=== PATIENT | male | born 1970 | race Caucasian/White ===

== ENCOUNTER 2017-09-26 12:55 | Inpatient (IN) | payer BC ==
[~2017-09-26] VITALS: Ht 188 cm; Wt 108.9 kg
[2017-09-26] MEDS ORDERED: IV NORMAL SALINE 1000ML BAG 1,000 ML IV SCH (13:16)
[2017-09-26] MEDS ORDERED: 0.9 % SODIUM CHLORIDE 10 ML DISP.SYRIN. IV PRN (13:30)
[2017-09-26] MEDS: HYDROmorphone 2 MG/ML VIAL IV/SQ PRN (13:33)
[2017-09-26 13:50] LABS: BASO % 0 % (0-3); EOS % 1 % (0-3); HEMATOCRIT 47.7 % (39.0-53.0); HEMOGLOBIN 16.3 g/dL (13.0-17.5); LYMPH # 1.2 x10^3/uL (1.0-4.8); LYMPH % 8 % (24-48); MEAN CORPUSCULAR HEMOGLOBIN 29 pg (25-35); MEAN CORPUSCULAR HGB CONC 34 g/dL (31-37); MEAN CORPUSCULAR VOLUME 84 fL (79-100); MONO % 7 % (0-9); NEUT % 84 % (31-73); PLATELET COUNT 233 x10^3/uL (140-400); WHITE BLOOD COUNT 14.2 x10^3/uL (4.0-11.0)
[2017-09-26 14:01] LABS: CALCIUM 9.4 mg/dL (8.5-10.1); CREATININE 1.1 mg/dL (0.7-1.3); GFR 71.4; POTASSIUM 4.1 mmol/L (3.5-5.1)
[2017-09-26 14:06] LABS: ALBUMIN 4.2 g/dL (3.4-5.0); DIRECT BILIRUBIN 0.1 mg/dL (0.0-0.2); MAGNESIUM 1.8 mg/dL (1.8-2.4); TOTAL BILIRUBIN 0.6 mg/dL (0.2-1.0); TOTAL PROTEIN 8.1 g/dL (6.4-8.2)
--- NOTE | 2017-09-26 14:13 | RAD ---
PQRS Compliance Statement: One or more of the following individualized dose reduction techniques were utilized for this examination: 1. Automated exposure control 2. Adjustment of the mA and/or kV according to patient size 3. Use of iterative reconstruction technique CT HEAD WITHOUT CONTRAST History: paresthesias of the left upper and left lower limb . Comparison: None. Procedure: Axial images are obtained of the head from the skull base through the vertex without IV contrast. Findings: Richards-white matter differentiation is preserved. The ventricles and sulci are normal for the patient's age.. No mass-effect, midline shift, hemorrhage or obvious acute infarction is identified. Basilar cisterns are patent. Bone windows demonstrate no significant calvarial abnormality.The visualized paranasal sinuses appear clear. Mastoid air cells are well aerated. IMPRESSION: No acute intracranial abnormality.
[2017-09-26 14:15] LABS: CKMB MASS 0.9 ng/mL (0.0-3.6)
[2017-09-26] MEDS ORDERED: ONDANSETRON PF 4 MG/2 ML VIAL. IV ONE (14:15)
--- NOTE | 2017-09-26 14:17 | RAD ---
AP PORTABLE CHEST Clinical Indication: chest pain. Comparison: AP chest 04/10/2012. Findings: The cardiomediastinal silhouette is normal. Lungs are clear. There is no pneumothorax. No pleural effusion is appreciated. There is no acute bone abnormality. IMPRESSION: No acute cardiopulmonary process.
--- NOTE | 2017-09-26 14:23 | PHYS DOC ---
Past Medical History Past Medical History: GERD, Hypertension Past Surgical History: Other Additional Past Surgical Histo: cardiac cath no intervention Alcohol Use: None Drug Use: None Adult General Chief Complaint Chief Complaint: CHEST PAIN HPI HPI He is a pleasant 47-year-old male with a history of reflux who presents with chest pain that began about 3 3/2 hours prior to arrival. Patient says the pain has been episodic in the center of his chest with radiation to the left chest wall. So subsequently during this event he also had tingling and numbness to his left upper arm and left lower leg is been continuous as well. He denies any problems with vision, denies any problems with speech, denies weakness in the upper or lower extremity just tingling and numbness. Subsequently the chest pain started while he was walking in [employer] shopping, he admits that he said a similar episode like this about 4 years ago requiring direct intervention and a catheterization by her tank insulator rubber which found as he states "" no disease. He has a significant family history of a father had a heart attack at age of 50 and direct relatives with also the same problem. He does not describe any shortness of breath with exertion or change in size habits. He further denies any travel outside the country, recent swelling or pain in his lower legs or other PE risk factors. Patient denies any direct trauma, denies any shortness of breath at this time, denies any URI symptoms including cough, runny nose congestion. He further denies any night sweats, weight loss or history of tuberculosis.. Patient was picked up by EMS based on his complaint this is only provided him aspirin for baby aspirins 81 mg apiece for total 324 mg. He also gave him 2 sprays of some little nitroglycerin and fentanyl without much improvement of his discomfort. Differential diagnosis for chest pain: Pericarditis, myocarditis, endocarditis, pneumothorax, pneumonia, aortic dissection, esophageal spasm, esophagitis, peptic ulcer disease, acute coronary syndrome, mediastinitis, Boerhaave syndrome , musculoskeletal chest wall pain, costochondritis, intercostal strain, rib fracture, pulmonary contusion, pneumonitis, pleural effusion, pericardial effusion, pericardial tamponode, and pleurisy. Patient's EKG done arrival within the first 10 minutes demonstrates at 1:02 PM heart rate of 81 there is a P wave there is QRS this is sinus rhythm with AR interval 144 which is normal, QRS width of 98 which is normal, QTC of 431 which is also normal. Patient has no signs of EKG changes consistent with acute cord ischemia there are no ST segment T-wave changes consistent with this finding. Patient has no evidence of Brugada syndrome, Fwuph-Kttvqcpoq-Rtylg or long QT Review of Systems Review of Systems Constitutional: Denies fever or chills [] Eyes: Denies change in visual acuity, redness, or eye pain [] HENT: Denies nasal congestion or sore throat [] Respiratory: Denies cough or shortness of breath [] Cardiovascular: No additional information not addressed in HPI [] GI: Denies abdominal pain, diarrhea or constipation. The patient has had some mild nausea and vomiting history of reflux. : Denies dysuria or hematuria [] Musculoskeletal: Denies back pain or joint pain [] Integument: Denies rash or skin lesions [] Neurologic: Denies headache, focal weakness or sensory changes [] Endocrine: Denies polyuria or polydipsia [] All other systems were reviewed and found to be within normal limits, except as documented in this note. Current Medications Current Medications Current Medications Medications (Trade) Dose Ordered Sig/Conner Start Time Stop Time Status Last Admin Dose Admin Hydromorphone HCl (Dilaudid) 1 mg PRN Q15MIN PRN 09/26/17 13:30 09/27/17 13:29 09/26/17 13:33 1 MG Lorazepam (Ativan) 1 mg 1X ONCE 09/26/17 13:30 09/26/17 13:31 DC 09/26/17 13:33 1 MG Ondansetron HCl (Zofran) 4 mg 1X ONCE 09/26/17 14:15 09/26/17 14:16 DC 09/26/17 14:05 4 MG Sodium Chloride (Normal Saline Flush) 10 ml QSHIFT PRN 09/26/17 13:30 Allergies Allergies Allergies Coded Allergies Type Severity Reaction Last Updated Verified No Known Drug Allergies 09/26/17 No Physical Exam Physical Exam Patient vital signs recorded on the chart within normal limits. Constitutional: Well developed, well nourished, no acute distress, non-toxic appearance patient is nondiaphoretic but uncomfortable non-pallorous. [] HENT: Normocephalic, atraumatic, bilateral external ears normal, oropharynx moist, no oral exudates, nose normal. [] Eyes: PERRLA, EOMI, conjunctiva normal, no discharge. [] Neck: Normal range of motion, no tenderness, supple, no stridor. [] Cardiovascular:Heart rate regular rhythm, no murmur [patient has no gallops or rubs noted no chest wall tenderness to palpation is reproducible on exam] Lungs & Thorax: Bilateral breath sounds clear to auscultation [] Abdomen: Bowel sounds normal, soft, no tenderness, no masses, no pulsatile masses. [] Skin: Warm, dry, no erythema, no rash. [] Extremities: No tenderness, no cyanosis, no clubbing, ROM intact, no edema. No Homans sign [] Neurologic: Alert and oriented X 3, normal motor function, normal sensory function, no focal deficits noted. [] Psychologic: Affect normal, judgement normal, mood normal. [] Stroke scale was initially scored upon arrival given patient's paresthesias to the left upper and left lower leg his score upon arrival is only 1 based on that finding 1a. Level of consciousness: 0 = Alert; keenly responsive. 1 = Not alert; but arousable by minor stimulation to obey, answer, or respond. 2 = Not alert; requires repeated stimulation to attend, or is obtunded and requires strong or painful stimulation to make movements (not stereotyped). 3 = Responds only with reflex motor or autonomic effects or totally unresponsive , flaccid, and areflexic. 1b. LOC questions: 0 = Answers both questions correctly. 1 = Answers one question correctly. 2 = Answers neither question correctly. 1c. LOC commands: 0 = Performs both tasks correctly. 1 = Performs one task correctly. 2 = Performs neither task correctly. 2. Best gaze: 0 = Normal. 1 = Partial gaze palsy; gaze is abnormal in one or both eyes, but forced deviation or total gaze paresis is not present. 2 = Forced deviation, or total gaze paresis not overcome by the oculocephalic maneuver. 3. Visual: 0 = No visual loss. 1 = Partial hemianopia. 2 = Complete hemianopia. 3 = Bilateral hemianopia (blind including cortical blindness). 4. Facial palsy: 0 = Normal symmetrical movements. 1 = Minor paralysis (flattened nasolabial fold, asymmetry on smiling). 2 = Partial paralysis (total or near-total paralysis of lower face). 3 = Complete paralysis of one or both sides (absence of facial movement in the upper and lower face). 5. Motor arm: 0 = No drift; limb holds 90 (or 45) degrees for full 10 seconds. 1 = Drift; limb holds 90 (or 45) degrees, but drifts down before full 10 seconds ; does not hit bed or other support. 2 = Some effort against gravity; limb cannot get to or maintain (if cued) 90 ( or 45) degrees, drifts down to bed, but has some effort against gravity. 3 = No effort against gravity; limb falls. 4 = No movement. UN = Amputation or joint fusion, explain: 5a. Left arm 5b. Right arm 6. Motor le = No drift; leg holds 30-degree position for full 5 seconds. 1 = Drift; leg falls by the end of the 5-second period but does not hit bed. 2 = Some effort against gravity; leg falls to bed by 5 seconds, but has some effort against gravity. 3 = No effort against gravity; leg falls to bed immediately. 4 = No movement. UN = Amputation or joint fusion, explain: 6a. Left leg 6b. Right leg 7. Limb ataxia: 0 = Absent. 1 = Present in one limb. 2 = Present in two limbs. UN = Amputation or joint fusion 8. Sensory: 0 = Normal; no sensory loss. 1 = Bzub-hd-gpswrofa sensory loss; patient feels pinprick is less sharp or is dull on the affected side; or there is a loss of superficial pain with pinprick , but patient is aware of being touched. 2 = Severe to total sensory loss; patient is not aware of being touched in the face, arm, and leg. 9. Best language: 0 = No aphasia; normal. 1 = Rsgt-ui-jhasmozc aphasia; some obvious loss of fluency or facility of comprehension, without significant limitation on ideas expressed or form of expression. Reduction of speech and/or comprehension, however, makes conversation about provided materials difficult or impossible. For example, in conversation about provided materials, examiner can identify picture or naming card content from patient's response. 2 = Severe aphasia; all communication is through fragmentary expression; great need for inference, questioning, and guessing by the listener. Range of information that can be exchanged is limited; listener carries burden of communication. Examiner cannot identify materials provided from patient response. 3 = Mute, global aphasia; no usable speech or auditory comprehension. 10. Dysarthria: 0 = Normal. 1 = Imtd-ue-sgydxdzh dysarthria; patient slurs at least some words and, at worst , can be understood with some difficulty. 2 = Severe dysarthria; patient's speech is so slurred as to be unintelligible in the absence of or out of proportion to any dysphasia, or is mute/anarthric. UN = Intubated or other physical barrier, explain: 11. Extinction and inattention (formerly neglect): 0 = No abnormality. 1 = Visual, tactile, auditory, spatial, or personal inattention or extinction to bilateral simultaneous stimulation in one of the sensory modalities. 2 = Profound yimi-inattention or extinction to more than one modality; does not recognize own hand or orients to only one side of space. Current Patient Data Vital Signs Vital Signs Date Time Temp Pulse Resp B/P (MAP) Pulse Ox O2 Delivery O2 Flow Rate FiO2 09/26/17 13:30 88 139/90 (106) 98 Room Air 09/26/17 13:11 98.5 20 98.5 Lab Values Laboratory Tests Test 09/26/17 13:30 White Blood Count 14.2 x10^3/uL (4.0-11.0) H Red Blood Count 5.70 x10^6/uL (4.30-5.70) Hemoglobin 16.3 g/dL (13.0-17.5) Hematocrit 47.7 % (39.0-53.0) Mean Corpuscular Volume 84 fL (79-100) Mean Corpuscular Hemoglobin 29 pg (25-35) Mean Corpuscular Hemoglobin Concent 34 g/dL (31-37) Red Cell Distribution Width 15.0 % (11.5-14.5) H Platelet Count 233 x10^3/uL (140-400) Neutrophils (%) (Auto) 84 % (31-73) H Lymphocytes (%) (Auto) 8 % (24-48) L Monocytes (%) (Auto) 7 % (0-9) Eosinophils (%) (Auto) 1 % (0-3) Basophils (%) (Auto) 0 % (0-3) Neutrophils # (Auto) 12.0 x10^3uL (1.8-7.7) H Lymphocytes # (Auto) 1.2 x10^3/uL (1.0-4.8) Monocytes # (Auto) 0.9 x10^3/uL (0.0-1.1) Eosinophils # (Auto) 0.1 x10^3/uL (0.0-0.7) Basophils # (Auto) 0.0 x10^3/uL (0.0-0.2) D-Dimer (Saida) < 0.27 ug/mlFEU Sodium Level 142 mmol/L (136-145) Potassium Level 4.1 mmol/L (3.5-5.1) Chloride Level 104 mmol/L (98-107) Carbon Dioxide Level 28 mmol/L (21-32) Anion Gap 10 (6-14) Blood Urea Nitrogen 15 mg/dL (8-26) Creatinine 1.1 mg/dL (0.7-1.3) Estimated GFR (Cockcroft-Gault) 71.4 Glucose Level 110 mg/dL (70-99) H Calcium Level 9.4 mg/dL (8.5-10.1) Magnesium Level 1.8 mg/dL (1.8-2.4) Total Bilirubin 0.6 mg/dL (0.2-1.0) Direct Bilirubin 0.1 mg/dL (0.0-0.2) Aspartate Amino Transferase (AST) 18 U/L (15-37) Alanine Aminotransferase (ALT) 40 U/L (16-63) Alkaline Phosphatase 120 U/L (46-116) H Creatine Kinase 80 U/L (39-308) Creatine Kinase MB (Mass) 0.9 ng/mL (0.0-3.6) Creatine Kinase MB Relative Index 1.1 % (0-4) Troponin I Quantitative < 0.017 ng/mL (0.000-0.055) SP-Eck-C-Type Natriuretic Peptide 21 pg/mL (0-124) Total Protein 8.1 g/dL (6.4-8.2) Albumin 4.2 g/dL (3.4-5.0) Lipase 144 U/L (73-393) Thyroid Stimulating Hormone (TSH) 1.481 uIU/mL (0.358-3.74) Laboratory Tests 09/26/17 13:30 Laboratory Tests 09/26/17 13:30 EKG EKG [] Radiology/Procedures Radiology/Procedures [] [facility] [address] [place] [address] IMAGING REPORT Signed PATIENT: DELIA NUÑEZ ACCOUNT: [id number] : 1970 LOCATION: ER AGE: 47 SEX: M EXAM STATUS: REG ER ORD. PHYSICIAN: ESTHELA BRITTON MD REASON: chest pain PROCEDURE: PORTABLE CHEST 1V AP PORTABLE CHEST Clinical Indication: chest pain. Comparison: AP chest 04/10/2012. Findings: The cardiomediastinal silhouette is normal. Lungs are clear. There is no pneumothorax. No pleural effusion is appreciated. There is no acute bone abnormality. IMPRESSION: No acute cardiopulmonary process. DICTATED and SIGNED BY: CLARITA SORIANO MD DATE: 09/26/171412 CC: ESTHELA BRITTON MD; JOHN MELTON DO ~ IMAGING REPORT Signed PATIENT: DELIA NUÑEZ ACCOUNT: [id number] : 1970 LOCATION: ER AGE: 47 SEX: M EXAM STATUS: REG ER ORD. PHYSICIAN: ESTHELA BRITTON MD REASON: paresthesias of the left upper and left lower limb PROCEDURE: CT HEAD WO CONTRAST PQRS Compliance Statement: One or more of the following individualized dose reduction techniques were utilized for this examination: 1. Automated exposure control 2. Adjustment of the mA and/or kV according to patient size 3. Use of iterative reconstruction technique CT HEAD WITHOUT CONTRAST History: paresthesias of the left upper and left lower limb . Comparison: None. Procedure: Axial images are obtained of the head from the skull base through the vertex without IV contrast. Findings: Richards-white matter differentiation is preserved. The ventricles and sulci are normal for the patient's age.. No mass-effect, midline shift, hemorrhage or obvious acute infarction is identified. Basilar cisterns are patent. Bone windows demonstrate no significant calvarial abnormality.The visualized paranasal sinuses appear clear. Mastoid air cells are well aerated. IMPRESSION: No acute intracranial abnormality. DICTATED and SIGNED BY: CLARITA SORIANO MD DATE: 09/26/17 2174 CC: ESTHELA BRITTON MD; JOHN MELTON DO ~ Course & Med Decision Making Course & Med Decision Making Pertinent Labs and Imaging studies reviewed. (See chart for details) []Patient resides with chest pain with a concerning history and family history of possible cardiac etiology. Patient's EKG on arrival at 1:02 PM is unremarkable signs of acute coronary ischemic changes. Patient essentially received fluids, antiemetics, aspirin, nitrates and Dilaudid here him or to part with some improvement of his symptoms. At 2:05 PM patient had an episode of nausea and vomiting requiring additional doses Zofran. This may be suffering from the use of Dilaudid. Troponin, d-dimer and CMP are unremarkable. Patient's CBC shows no signs of inflammation or infection on physical exam but patient has an elevated white count of 14,000. Laboratory Tests Test 09/26/17 13:30 White Blood Count 14.2 x10^3/uL (4.0-11.0) Red Blood Count 5.70 x10^6/uL (4.30-5.70) Hemoglobin 16.3 g/dL (13.0-17.5) Hematocrit 47.7 % (39.0-53.0) Mean Corpuscular Volume 84 fL (79-100) Mean Corpuscular Hemoglobin 29 pg (25-35) Mean Corpuscular Hemoglobin Concent 34 g/dL (31-37) Red Cell Distribution Width 15.0 % (11.5-14.5) Platelet Count 233 x10^3/uL (140-400) Neutrophils (%) (Auto) 84 % (31-73) Lymphocytes (%) (Auto) 8 % (24-48) Monocytes (%) (Auto) 7 % (0-9) Eosinophils (%) (Auto) 1 % (0-3) Basophils (%) (Auto) 0 % (0-3) Neutrophils # (Auto) 12.0 x10^3uL (1.8-7.7) Lymphocytes # (Auto) 1.2 x10^3/uL (1.0-4.8) Monocytes # (Auto) 0.9 x10^3/uL (0.0-1.1) Eosinophils # (Auto) 0.1 x10^3/uL (0.0-0.7) Basophils # (Auto) 0.0 x10^3/uL (0.0-0.2) D-Dimer (Saida) < 0.27 ug/mlFEU Sodium Level 142 mmol/L (136-145) Chloride Level 104 mmol/L (98-107) Carbon Dioxide Level 28 mmol/L (21-32) Anion Gap 10 (6-14) Blood Urea Nitrogen 15 mg/dL (8-26) Estimated GFR (Cockcroft-Gault) 71.4 Glucose Level 110 mg/dL (70-99) Calcium Level 9.4 mg/dL (8.5-10.1) Total Bilirubin 0.6 mg/dL (0.2-1.0) Direct Bilirubin 0.1 mg/dL (0.0-0.2) Aspartate Amino Transf (AST/SGOT) 18 U/L (15-37) Alkaline Phosphatase 120 U/L (46-116) Creatine Kinase 80 U/L (39-308) Creatine Kinase MB (Mass) 0.9 ng/mL (0.0-3.6) Creatine Kinase MB Relative Index 1.1 % (0-4) Troponin I Quantitative < 0.017 ng/mL (0.000-0.055) Total Protein 8.1 g/dL (6.4-8.2) Albumin 4.2 g/dL (3.4-5.0) Lipase 144 U/L (73-393) Patient's portal chest x-ray at 1:58 PM 09/26/2017 read by me demonstrated no acute cardiopulmonary infiltrate or abnormalities. Patient's cardiac shadow is normal size, no evidence of pleural effusion, no evidence of pneumothorax or rib fracture. History: Patient patient's history of suspicious nature, risk factors patient is a moderate risk of 4 requiring observation risk management and admission to the hospital for subsequent evaluation of his chest pain. Highly suspicious 2 points moderately suspicious 1. slightly suspicious 0 point EKG: ST segment depression 2. nonspecific repolarization disturbance 1. normal 0 point Age: Greater than 65 2 points, 65-45 1., less than 45 years old 0 points Risk factors:> 3 risk factors 2 points, 1-2 risk factors one point, no risk factors 0 point Troponin: > 2 times normal 2 points, 1-2 times normal 1., normal limits 0 point Total score: Score % pts MACE/n MACE Policy 0-3 32% 1.9% 0.05% Discharge 4-6 51% 413/3136 13% 1.3% Observation Risk management 7-10 17% 518/1045 50% 2.8% Observation Treatment, CAGB Patient's paresthesias could be associated with a possible stroke given patient' s symptom duration of 3 Hours prior to arrival he is not likely to have benefited from TPA given low score and unclear onset of symptoms greater than 3 hours. 2017 TPA exclusion criteria take from [facility] inclusion guidelines include Inclusion criteria include: Onset of symptoms less than 3 hours from the beginning of treatment diagnosis of an ischemic stroke causing measurable neurologic deficit Age or with an 18 Exclusion criteria: Recent intracranial or spinal surgery or significant head trauma or prior stroke within the prior 3 months Symptoms suggestive of a subarachnoid hemorrhage History of present intercranial hemorrhage, intracranial neoplasm or AV malformation or aneurysm Active internal bleeding Sustained systolic blood pressure greater than 185 systolic, 110 diastolic Blood glucose constitutional less than 50 Active bleeding diathesis Arterial puncture at a noncompressible site with the previous [address] demonstrates acute ischemic infarct evidence of early edema, mass effect, large infarct Patient or family refusal Relative exclusion criteria include: IV thrombolyzes at nights at Hospital Impression acute myocardial infarct with the previous 3 months or acute pericarditis Rapidly improving or minor symptoms clearing spontaneously Known or suspected Seizure at onset with postictal residual neurologic impairments Life expectancy less than 1 year or severe comorbidities The care team was unable to determine eligibility Major surgery or serious trauma within the previous 14 days Subacute bacterial endocarditis Recent gastrointestinal or UTI hemorrhage within the last 21 days [employer]ants And Contract[employer] Assistant note: Dr. Swenson [employer] Assistant called at of the service internal medicine service called at 2:34 PM Consult called back at 2:34 PM Discussed the case I presented and they agreed with admission. Time of acceptance 2:34 PM "I have assessed this patient clinically and believe that their condition requires an admission to the hospital. After consulting the admitting physician about this case, they have asked that I admit this patient to their service as an inpatient based on the clinical presentation and my impression." Dragon Disclaimer Dragon Disclaimer This electronic medical record was generated, in whole or in part, using a voice recognition dictation system. Departure Departure Impression: Primary Impression: Chest pain Additional Impressions: Paresthesias/numbness Left leg paresthesias Arm paresthesia, left Disposition: 09 ADMITTED INPATIENT Admitting Physician: Jenna Swenson Condition: GUARDED Referrals: JOHN MELTON DO (PCP) Problem Qualifiers ESTHELA BRITTON MD Sep 26, 2017 14:23
[2017-09-26] MEDS ORDERED: fentaNYL PF VIAL 100 MCG/2 ML VIAL IV PRN (14:30)
[2017-09-26] MEDS ORDERED: NITROGLYCERIN SUBLINGUAL 0.4 MG BOTTLE OF 25. SL PRN (14:30)
[2017-09-26] MEDS ORDERED: ONDANSETRON PF 4 MG/2 ML VIAL. IV PRN (14:30)
[2017-09-26] MEDS: IV NORMAL SALINE 1000ML BAG 1,000 ML IV SCH ×2 (15:46→20:49)
[2017-09-26] MEDS ORDERED: AMLO5TAB2 PO (16:41)
[2017-09-26] MEDS ORDERED: OMEP20TA8 PO (16:41)
[2017-09-26 17:49] VITALS: BP 145/87
--- NOTE | 2017-09-26 19:07 | EKG ---
[facility] [address] [place] [address] Test Date: 2017-09-26 Test Time: 13:02:18 Pat Name: DELIA NUÑEZ Department: Room: 252 1 Gender: M Client Associate: : 1970 Requested By: ESTHELA BRITTON Order Number: [id number] Reading MD: Measurements Intervals [place] Rate: 81 P: 26 TX: 144 QRS: -2 QRSD: 98 T: 24 QT: 366 QTc: 431 Interpretive Statements SINUS RHYTHM LEFTWARD AXIS QRS(T) CONTOUR ABNORMALITY CONSIDER ANTEROSEPTAL MYOCARDIAL DAMAGE POSSIBLY ABNORMAL ECG RI6.01 No previous ECG available for comparison
[2017-09-26 19:30] VITALS: BP 123/77
[2017-09-26 21:06] LABS: BILIRUBIN,URINE NEGATIVE (NEG); GLUCOSE,URINE NEGATIVE (NEG); NITRITE,URINE NEGATIVE (NEG); PROTEIN,URINE NEGATIVE (NEG-TRACE)
[2017-09-26 21:28] LABS: BACTERIA,URINE 0 /HPF (0-FEW); RBC,URINE 0 /HPF (0-2); WBC,URINE 0 /HPF (0-4)
[2017-09-26 23:00] VITALS: BP 135/80
[2017-09-27] MEDS: HYDROmorphone 2 MG/ML VIAL IV/SQ PRN (01:00)
[2017-09-27 03:25] VITALS: BP 122/76
[2017-09-27] MEDS: IV NORMAL SALINE 1000ML BAG 1,000 ML IV SCH (04:41)
[2017-09-27 07:00] VITALS: BP 134/87
[2017-09-27] MEDS ORDERED: PANTOPRAZOLE 40 MG TABLET.DR. PO SCH ×2 (07:30→16:30)
[2017-09-27] MEDS ORDERED: amLODIPine BESYLATE 5 MG TABLET PO SCH (09:00)
[2017-09-27] MEDS ORDERED: FLU VACC QS2017-18 (36MOS+)/PF 0.5 ML SYRINGE. VAX IM ONE (09:00)
--- NOTE | 2017-09-27 10:10 | PDOC1 ---
History and Physical Date of Admission Date of Admission DATE: 09/27/17 TIME: 10:10 Source Source: Chart review, Patient History of Present Illness History of Present Illness new chest pain started yesterday in AM, presented to the ER in the afternoon. Pain was tight, but maybe burning, and feels much better this AM, ,admit for s /o angina he works in a print shop, no prior history his primary care is at [facility], + Past Medical History Cardiovascular: HTN Pulmonary: No pertinent hx GI: GERD Past Surgical History Past Surgical History: No pertinent history Family History Family History: Coronary Artery Disease, Heart Disease, High Cholestrol Social History Smoke: No ALCOHOL: none Drugs: None Current Problem List Problem List Problems Medical Problems: (1) Arm paresthesia, left Status: Acute (2) Chest pain Status: Acute (3) Left leg paresthesias Status: Acute (4) Paresthesias/numbness Status: Acute Problems: Current Medications Current Medications Current Medications Lorazepam (Ativan) 1 mg 1X ONCE IV Last administered on 09/26/17 13:33; Start 09/26/17 at 13:30; Stop 09/26/17 at 13:31; Status DC Hydromorphone HCl (Dilaudid) 1 mg PRN Q15MIN PRN IV/SQ PAIN GREATER THAN 3/10 Last administered on 09/27/17 01:00; Start 09/26/17 at 13:30; Stop 09/27/17 at 13:29 Sodium Chloride 1,000 ml @ 1,000 mls/hr Q1H IV Last administered on 13:33; Start 09/26/17 at 13:16; Stop 09/26/17 at 14:15; Status DC Sodium Chloride (Normal Saline Flush) 10 ml QSHIFT PRN IV AFTER MEDS AND BLOOD DRAWS; Start 09/26/17 at 13:30 Ondansetron HCl (Zofran) 4 mg 1X ONCE IV Last administered on 09/26/17 14:05 ; Start 09/26/17 at 14:15; Stop 09/26/17 at 14:16; Status DC Ondansetron HCl (Zofran) 4 mg PRN Q8HRS PRN IV NAUSEA/VOMITING Last administered on 09/26/17 15:45; Start 09/26/17 at 14:30; Stop 09/27/17 at 14 :29 Fentanyl Citrate (Fentanyl 2ml Vial) 50 mcg PRN Q2HR PRN IV PAIN Last administered on 09/27/17 08:55; Start 09/26/17 at 14:30; Stop 09/27/17 at 14 :29 Sodium Chloride 1,000 ml @ 125 mls/hr Q8H IV Last administered on 09/27/17 04:41; Start 09/26/17 at 14:30; Stop 09/27/17 at 14:29 Nitroglycerin (Nitrostat) 0.4 mg PRN Q5MIN PRN SL CHEST PAIN Last administered on 09/26/17 17:47; Start 09/26/17 at 14:30; Stop 09/27/17 at 14:29 Influenza Virus Vaccine Quadrival (Fluarix Quad [id number] Syringe) 0.5 ml ONCE ONCE VAX IM ; Start 09/27/17 at 09:00; Stop 09/27/17 at 09:01; Status DC Amlodipine Besylate (Norvasc) 5 mg DAILY PO Last administered on 09/27/17 08: 54; Start 09/27/17 at 09:00 Pantoprazole Sodium (Protonix) 40 mg DAILYAC PO Last administered on 08:54; Start 09/27/17 at 07:30 Active Scripts Active Reported Omeprazole 20 Mg Tablet.dr 20 Mg PO DAILY Amlodipine Besylate 5 Mg Tablet 5 Mg PO DAILY Allergies Allergies: Coded Allergies: No Known Drug Allergies (Unverified , 09/26/17) ROS General: No: Chills, Night Sweats, Fatigue, Malaise, Appetite, Other PSYCHOLOGICAL ROS: No: Anxiety, Behavioral Disorder, Concentration difficultie , Decreased libido, Depression, Disorientation, Hallucinations, Hostility, Irritablity, Memory difficulties, Mood Swings, Obsessive thoughts, Physical abuse, Sexual abuse, Sleep disturbances, Suicidal ideation, Other Eyes: No Blurry vision, No Decreased vision, No Double vision, No Dry eyes, No Excessive tearing, No Eye Pain, No Itchy Eyes, No Loss of vision, No Photophobia , No Scotomata, No Uses contacts, No Uses glasses, No Other HEENT: No: Heacaches, Visual Changes, Hearing change, Nasal congestion, Nasal discharge, Oral lesions, Sinus pain, Sore Throat, Epistaxis, Sneezing, Snoring, Tinnitus, Vertigo, Vocal changes, Other ENDOCRINE: No: Breast Changes, Galactorrhea, Hair Pattern Changes, Hot Flashes , Malaise/lethargy, Mood Swings, Palpitations, Polydipsia/polyuria, Skin Changes , Temperature Intolerance, Unexpected Weight Changes, Other Respiratory: No: Cough, Hemoptysis, Orthopnea, Pleuritic Pain, Shortness of breath, SOB with excertion, Sputum Changes, Stridor, Tachypnea, Wheezing, Other Cardiovascular: yes Chest Pain, No Palpitations, No Orthopnea, No Paroxysmal Noc. Dyspnea, No Edema, No Lt Headedness, No Other Gastrointestinal: Yes Nausea, No Vomiting, No Abdominal Pain, No Diarrhea, No Constipation, No Melena, No Hematochezia, No Other Genitourinary: No Dysuria, No Frequency, No Incontinence, No Hematuria, No Retention, No Discharge, No Urgency, No Pain, No Flank Pain, No Other, No , No , No , No , No , No , No Musculoskeletal: No Gait Disturbance, No Joint Pain, No Joint Stiffness, No Joint Swelling, No Muscle Pain, No Muscular Weakness, No Pain In:, No Swelling In:, No Other Neurological: No Behavorial Changes, No Bowel/Bladder ControlChng, No Confusion , No Dizziness, No Gait Disturbance, No Headaches, No Impaired Coord/balance, No Memory Loss, No Numbness/Tingling, No Seizures, No Speech Problems, No Tremors, No Visual Changes, No Weakness, No Other Skin: No Dry Skin, No Eczema, No Hair Changes, No Lumps, No Mole Changes, No Mottling, No Nail Changes, No Pruritus, No Rash, No Skin Lesion Changes, No Other, No Acne Physical Exam General: Alert, Oriented X3, No acute distress HEENT: Atraumatic, PERRLA, Mucous membr. moist/pink Lungs: Clear to auscultation, Normal air movement Heart: S1S2, no murmurs Abdomen: Normal bowel sounds, Soft Rectal Exam: not examined Extremities: No cyanosis, No edema, Normal pulses Skin: No rashes, No significant lesion Neuro: Normal tone, Cranial nerves 3-12 NL Psych/Mental Status: Mood NL Vitals Vitals Vital Signs Date Time Temp Pulse Resp B/P (MAP) Pulse Ox O2 Delivery O2 Flow Rate FiO2 12/25/17 08:55 20 95 Room Air 09/27/17 08:54 84 134/87 09/27/17 07:00 98.3 98.3 Labs Labs Laboratory Tests Test 09/26/17 13:30 09/26/17 18:00 09/26/17 20:30 09/27/17 02:30 White Blood Count 14.2 x10^3/uL (4.0-11.0) Red Blood Count 5.70 x10^6/uL (4.30-5.70) Hemoglobin 16.3 g/dL (13.0-17.5) Hematocrit 47.7 % (39.0-53.0) Mean Corpuscular Volume 84 fL (79-100) Mean Corpuscular Hemoglobin 29 pg (25-35) Mean Corpuscular Hemoglobin Concent 34 g/dL (31-37) Red Cell Distribution Width 15.0 % (11.5-14.5) Platelet Count 233 x10^3/uL (140-400) Neutrophils (%) (Auto) 84 % (31-73) Lymphocytes (%) (Auto) 8 % (24-48) Monocytes (%) (Auto) 7 % (0-9) Eosinophils (%) (Auto) 1 % (0-3) Basophils (%) (Auto) 0 % (0-3) Neutrophils # (Auto) 12.0 x10^3uL (1.8-7.7) Lymphocytes # (Auto) 1.2 x10^3/uL (1.0-4.8) Monocytes # (Auto) 0.9 x10^3/uL (0.0-1.1) Eosinophils # (Auto) 0.1 x10^3/uL (0.0-0.7) Basophils # (Auto) 0.0 x10^3/uL (0.0-0.2) D-Dimer (Saida) < 0.27 ug/mlFEU Sodium Level 142 mmol/L (136-145) Potassium Level 4.1 mmol/L (3.5-5.1) Chloride Level 104 mmol/L (98-107) Carbon Dioxide Level 28 mmol/L (21-32) Anion Gap 10 (6-14) Blood Urea Nitrogen 15 mg/dL (8-26) Creatinine 1.1 mg/dL (0.7-1.3) Estimated GFR (Cockcroft-Gault) 71.4 Glucose Level 110 mg/dL (70-99) Calcium Level 9.4 mg/dL (8.5-10.1) Magnesium Level 1.8 mg/dL (1.8-2.4) Total Bilirubin 0.6 mg/dL (0.2-1.0) Direct Bilirubin 0.1 mg/dL (0.0-0.2) Aspartate Amino Transf (AST/SGOT) 18 U/L (15-37) Alanine Aminotransferase (ALT/SGPT) 40 U/L (16-63) Alkaline Phosphatase 120 U/L (46-116) Creatine Kinase 80 U/L (39-308) Creatine Kinase MB (Mass) 0.9 ng/mL (0.0-3.6) Creatine Kinase MB Relative Index 1.1 % (0-4) Troponin I Quantitative < 0.017 ng/mL (0.000-0.055) < 0.017 ng/mL (0.000-0.055) < 0.017 ng/mL (0.000-0.055) FM-Uqr-D-Type Natriuretic Peptide 21 pg/mL (0-124) Total Protein 8.1 g/dL (6.4-8.2) Albumin 4.2 g/dL (3.4-5.0) Lipase 144 U/L (73-393) Thyroid Stimulating Hormone (TSH) 1.481 uIU/mL (0.358-3.74) Urine Collection Type Unknown Urine Color Yellow Urine Clarity Clear Urine pH 6.0 Urine Specific [place] 1.025 Urine Protein Negative mg/dL (NEG-TRACE) Urine Glucose (UA) Negative mg/dL (NEG) Urine Ketones (Stick) Negative mg/dL (NEG) Urine Blood Negative (NEG) Urine Nitrite Negative (NEG) Urine Bilirubin Negative (NEG) Urine Urobilinogen Dipstick 1.0 mg/dL (0.2 mg/dL) Urine Leukocyte Esterase Negative (NEG) Urine RBC 0 /HPF (0-2) Urine WBC 0 /HPF (0-4) Urine Bacteria 0 /HPF (0-FEW) Urine Mucus Marked /LPF Laboratory Tests Test 09/26/17 13:30 09/26/17 18:00 09/26/17 20:30 09/27/17 02:30 White Blood Count 14.2 x10^3/uL (4.0-11.0) Red Blood Count 5.70 x10^6/uL (4.30-5.70) Hemoglobin 16.3 g/dL (13.0-17.5) Hematocrit 47.7 % (39.0-53.0) Mean Corpuscular Volume 84 fL (79-100) Mean Corpuscular Hemoglobin 29 pg (25-35) Mean Corpuscular Hemoglobin Concent 34 g/dL (31-37) Red Cell Distribution Width 15.0 % (11.5-14.5) Platelet Count 233 x10^3/uL (140-400) Neutrophils (%) (Auto) 84 % (31-73) Lymphocytes (%) (Auto) 8 % (24-48) Monocytes (%) (Auto) 7 % (0-9) Eosinophils (%) (Auto) 1 % (0-3) Basophils (%) (Auto) 0 % (0-3) Neutrophils # (Auto) 12.0 x10^3uL (1.8-7.7) Lymphocytes # (Auto) 1.2 x10^3/uL (1.0-4.8) Monocytes # (Auto) 0.9 x10^3/uL (0.0-1.1) Eosinophils # (Auto) 0.1 x10^3/uL (0.0-0.7) Basophils # (Auto) 0.0 x10^3/uL (0.0-0.2) D-Dimer (Saida) < 0.27 ug/mlFEU Sodium Level 142 mmol/L (136-145) Potassium Level 4.1 mmol/L (3.5-5.1) Chloride Level 104 mmol/L (98-107) Carbon Dioxide Level 28 mmol/L (21-32) Anion Gap 10 (6-14) Blood Urea Nitrogen 15 mg/dL (8-26) Creatinine 1.1 mg/dL (0.7-1.3) Estimated GFR (Cockcroft-Gault) 71.4 Glucose Level 110 mg/dL (70-99) Calcium Level 9.4 mg/dL (8.5-10.1) Magnesium Level 1.8 mg/dL (1.8-2.4) Total Bilirubin 0.6 mg/dL (0.2-1.0) Direct Bilirubin 0.1 mg/dL (0.0-0.2) Aspartate Amino Transf (AST/SGOT) 18 U/L (15-37) Alanine Aminotransferase (ALT/SGPT) 40 U/L (16-63) Alkaline Phosphatase 120 U/L (46-116) Creatine Kinase 80 U/L (39-308) Creatine Kinase MB (Mass) 0.9 ng/mL (0.0-3.6) Creatine Kinase MB Relative Index 1.1 % (0-4) Troponin I Quantitative < 0.017 ng/mL (0.000-0.055) < 0.017 ng/mL (0.000-0.055) < 0.017 ng/mL (0.000-0.055) VY-Zwn-I-Type Natriuretic Peptide 21 pg/mL (0-124) Total Protein 8.1 g/dL (6.4-8.2) Albumin 4.2 g/dL (3.4-5.0) Lipase 144 U/L (73-393) Thyroid Stimulating Hormone (TSH) 1.481 uIU/mL (0.358-3.74) Urine Collection Type Unknown Urine Color Yellow Urine Clarity Clear Urine pH 6.0 Urine Specific [place] 1.025 Urine Protein Negative mg/dL (NEG-TRACE) Urine Glucose (UA) Negative mg/dL (NEG) Urine Ketones (Stick) Negative mg/dL (NEG) Urine Blood Negative (NEG) Urine Nitrite Negative (NEG) Urine Bilirubin Negative (NEG) Urine Urobilinogen Dipstick 1.0 mg/dL (0.2 mg/dL) Urine Leukocyte Esterase Negative (NEG) Urine RBC 0 /HPF (0-2) Urine WBC 0 /HPF (0-4) Urine Bacteria 0 /HPF (0-FEW) Urine Mucus Marked /LPF VTE Prophylaxis Ordered VTE Prophylaxis Devices: Yes VTE Pharmacological Prophylaxi: No Assessment/Plan Assessment/Plan chest pain, thought to be angina, ACS ruled out, likely GERD has HTN, is obese, BMI 31, strong family history, would benefit from stress test to stratify his risk, will check lipid panel now, he may be able to follow up w/ testing soon, he feels he could be able to run an on treadmill Htn, norvasc GERD, try GI cocktail, double up the PPI, should have EGD, KATHLEEN OTRIBIO MD Sep 27, 2017 10:10
[2017-09-27] MEDS ORDERED: LIDO:MAALOX:DONNATAL 1:1:1 15 ML SINGLE DOSE SWSW ONE (10:30)
[2017-09-27 11:00] VITALS: BP 127/89
[2017-09-27] MEDS ORDERED: OMEP20TA8 PO (11:50)
--- NOTE | 2017-09-27 12:25 | PDOC2 ---
CONSULT Date of Consult Date of Consult DATE: 09/27/17 TIME: 12:25 Reason for Consult Reason for Consult: Chest pain Referring Physician Referring Physician: Dr. Sim Identification/Chief Complaint Chief Complaint Chest pain Problems: Source Source: Chart review, Patient History of Present Illness Reason for Visit: 47-year-old male presented with left-sided chest pressure, 8/10 severity associated with nausea and one episode of vomiting. He denied any exertional component to his pain. He also denied any orthopnea/PND, palpitations or syncope. Past Medical History Cardiovascular: HTN Pulmonary: No pertinent hx GI: GERD Past Surgical History Past Surgical History: No pertinent history Family History Family History: Coronary Artery Disease, Heart Disease, High Cholestrol Social History No ALCOHOL: none Drugs: None Current Problem List Problem List Problems Medical Problems: (1) Arm paresthesia, left Status: Acute (2) Chest pain Status: Acute (3) Left leg paresthesias Status: Acute (4) Paresthesias/numbness Status: Acute Current Medications Current Medications Current Medications Lorazepam (Ativan) 1 mg 1X ONCE IV Last administered on 09/26/17 13:33; Start 09/26/17 at 13:30; Stop 09/26/17 at 13:31; Status DC Hydromorphone HCl (Dilaudid) 1 mg PRN Q15MIN PRN IV/SQ PAIN GREATER THAN 3/10 Last administered on 09/27/17 01:00; Start 09/26/17 at 13:30; Stop 09/27/17 at 10:22; Status DC Sodium Chloride 1,000 ml @ 1,000 mls/hr Q1H IV Last administered on 13:33; Start 09/26/17 at 13:16; Stop 09/26/17 at 14:15; Status DC Sodium Chloride (Normal Saline Flush) 10 ml QSHIFT PRN IV AFTER MEDS AND BLOOD DRAWS; Start 09/26/17 at 13:30 Ondansetron HCl (Zofran) 4 mg 1X ONCE IV Last administered on 09/26/17 14:05 ; Start 09/26/17 at 14:15; Stop 09/26/17 at 14:16; Status DC Ondansetron HCl (Zofran) 4 mg PRN Q8HRS PRN IV NAUSEA/VOMITING Last administered on 09/26/17 15:45; Start 09/26/17 at 14:30; Stop 09/27/17 at 14 :29 Fentanyl Citrate (Fentanyl 2ml Vial) 50 mcg PRN Q2HR PRN IV PAIN Last administered on 09/27/17 08:55; Start 09/26/17 at 14:30; Stop 09/27/17 at 14 :29 Sodium Chloride 1,000 ml @ 125 mls/hr Q8H IV Last administered on 09/27/17 04:41; Start 09/26/17 at 14:30; Stop 09/27/17 at 14:29 Nitroglycerin (Nitrostat) 0.4 mg PRN Q5MIN PRN SL CHEST PAIN Last administered on 09/26/17 17:47; Start 09/26/17 at 14:30; Stop 09/27/17 at 14:29 Influenza Virus Vaccine Quadrival (Fluarix Quad [id number] Syringe) 0.5 ml ONCE ONCE VAX IM Last administered on 09/27/17 12:15; Start 09/27/17 at 09:00; Stop 09/27/17 at 09:01; Status DC Amlodipine Besylate (Norvasc) 5 mg DAILY PO Last administered on 09/27/17 08: 54; Start 09/27/17 at 09:00 Pantoprazole Sodium (Protonix) 40 mg DAILYAC PO Last administered on 08:54; Start 09/27/17 at 07:30; Stop 09/27/17 at 10:28; Status DC Multi-Ingredient Mouthwash/Gargle (Gi Cocktail Single Dose) 15 ml 1X ONCE SWSW Last administered on 09/27/17 12:13; Start 09/27/17 at 10:30; Stop at 10:31; Status DC Pantoprazole Sodium (Protonix) 40 mg BIDAC PO ; Start 09/27/17 at 16:30 Active Scripts Active Reported Omeprazole 20 Mg Tablet.dr 20 Mg PO DAILY Amlodipine Besylate 5 Mg Tablet 5 Mg PO DAILY Allergies Allergies: Coded Allergies: No Known Drug Allergies (Unverified , 09/26/17) ROS PSYCHOLOGICAL ROS: No: Hallucinations Eyes: No Loss of vision HEENT: No: Epistaxis Respiratory: No: Hemoptysis, Shortness of breath Cardiovascular: yes Chest Pain Gastrointestinal: Yes Nausea, Yes Vomiting Genitourinary: No Hematuria Neurological: No Seizures Skin: No Rash Physical Exam General: Alert, Oriented X3 HEENT: Atraumatic, PERRLA Lungs: Clear to auscultation Heart: Regular rate Abdomen: Soft Extremities: No edema Psych/Mental Status: Mood NL Vitals VITALS Vital Signs Date Time Temp Pulse Resp B/P (MAP) Pulse Ox O2 Delivery O2 Flow Rate FiO2 09/27/17 11:00 97.8 77 20 127/89 (102) 96 Room Air 97.8 Labs Labs Laboratory Tests Test 09/26/17 13:30 09/26/17 18:00 09/26/17 20:30 09/27/17 02:30 White Blood Count 14.2 x10^3/uL (4.0-11.0) Red Blood Count 5.70 x10^6/uL (4.30-5.70) Hemoglobin 16.3 g/dL (13.0-17.5) Hematocrit 47.7 % (39.0-53.0) Mean Corpuscular Volume 84 fL (79-100) Mean Corpuscular Hemoglobin 29 pg (25-35) Mean Corpuscular Hemoglobin Concent 34 g/dL (31-37) Red Cell Distribution Width 15.0 % (11.5-14.5) Platelet Count 233 x10^3/uL (140-400) Neutrophils (%) (Auto) 84 % (31-73) Lymphocytes (%) (Auto) 8 % (24-48) Monocytes (%) (Auto) 7 % (0-9) Eosinophils (%) (Auto) 1 % (0-3) Basophils (%) (Auto) 0 % (0-3) Neutrophils # (Auto) 12.0 x10^3uL (1.8-7.7) Lymphocytes # (Auto) 1.2 x10^3/uL (1.0-4.8) Monocytes # (Auto) 0.9 x10^3/uL (0.0-1.1) Eosinophils # (Auto) 0.1 x10^3/uL (0.0-0.7) Basophils # (Auto) 0.0 x10^3/uL (0.0-0.2) D-Dimer (Saida) < 0.27 ug/mlFEU Sodium Level 142 mmol/L (136-145) Potassium Level 4.1 mmol/L (3.5-5.1) Chloride Level 104 mmol/L (98-107) Carbon Dioxide Level 28 mmol/L (21-32) Anion Gap 10 (6-14) Blood Urea Nitrogen 15 mg/dL (8-26) Creatinine 1.1 mg/dL (0.7-1.3) Estimated GFR (Cockcroft-Gault) 71.4 Glucose Level 110 mg/dL (70-99) Calcium Level 9.4 mg/dL (8.5-10.1) Magnesium Level 1.8 mg/dL (1.8-2.4) Total Bilirubin 0.6 mg/dL (0.2-1.0) Direct Bilirubin 0.1 mg/dL (0.0-0.2) Aspartate Amino Transf (AST/SGOT) 18 U/L (15-37) Alanine Aminotransferase (ALT/SGPT) 40 U/L (16-63) Alkaline Phosphatase 120 U/L (46-116) Creatine Kinase 80 U/L (39-308) Creatine Kinase MB (Mass) 0.9 ng/mL (0.0-3.6) Creatine Kinase MB Relative Index 1.1 % (0-4) Troponin I Quantitative < 0.017 ng/mL (0.000-0.055) < 0.017 ng/mL (0.000-0.055) < 0.017 ng/mL (0.000-0.055) QQ-Fro-J-Type Natriuretic Peptide 21 pg/mL (0-124) Total Protein 8.1 g/dL (6.4-8.2) Albumin 4.2 g/dL (3.4-5.0) Lipase 144 U/L (73-393) Thyroid Stimulating Hormone (TSH) 1.481 uIU/mL (0.358-3.74) Urine Collection Type Unknown Urine Color Yellow Urine Clarity Clear Urine pH 6.0 Urine Specific [place] 1.025 Urine Protein Negative mg/dL (NEG-TRACE) Urine Glucose (UA) Negative mg/dL (NEG) Urine Ketones (Stick) Negative mg/dL (NEG) Urine Blood Negative (NEG) Urine Nitrite Negative (NEG) Urine Bilirubin Negative (NEG) Urine Urobilinogen Dipstick 1.0 mg/dL (0.2 mg/dL) Urine Leukocyte Esterase Negative (NEG) Urine RBC 0 /HPF (0-2) Urine WBC 0 /HPF (0-4) Urine Bacteria 0 /HPF (0-FEW) Urine Mucus Marked /LPF Triglycerides Level 81 mg/dL (0-150) Cholesterol Level 143 mg/dL (0-200) LDL Cholesterol, Calculated 91 mg/dL (0-100) VLDL Cholesterol, Calculated 16 mg/dL (0-40) Non-HDL Cholesterol Calculated 107 mg/dL (0-129) HDL Cholesterol 36 mg/dL (40-60) Cholesterol/HDL Ratio 4.0 Laboratory Tests Test 09/26/17 13:30 09/26/17 18:00 09/26/17 20:30 09/27/17 02:30 White Blood Count 14.2 x10^3/uL (4.0-11.0) Red Blood Count 5.70 x10^6/uL (4.30-5.70) Hemoglobin 16.3 g/dL (13.0-17.5) Hematocrit 47.7 % (39.0-53.0) Mean Corpuscular Volume 84 fL (79-100) Mean Corpuscular Hemoglobin 29 pg (25-35) Mean Corpuscular Hemoglobin Concent 34 g/dL (31-37) Red Cell Distribution Width 15.0 % (11.5-14.5) Platelet Count 233 x10^3/uL (140-400) Neutrophils (%) (Auto) 84 % (31-73) Lymphocytes (%) (Auto) 8 % (24-48) Monocytes (%) (Auto) 7 % (0-9) Eosinophils (%) (Auto) 1 % (0-3) Basophils (%) (Auto) 0 % (0-3) Neutrophils # (Auto) 12.0 x10^3uL (1.8-7.7) Lymphocytes # (Auto) 1.2 x10^3/uL (1.0-4.8) Monocytes # (Auto) 0.9 x10^3/uL (0.0-1.1) Eosinophils # (Auto) 0.1 x10^3/uL (0.0-0.7) Basophils # (Auto) 0.0 x10^3/uL (0.0-0.2) D-Dimer (Saida) < 0.27 ug/mlFEU Sodium Level 142 mmol/L (136-145) Potassium Level 4.1 mmol/L (3.5-5.1) Chloride Level 104 mmol/L (98-107) Carbon Dioxide Level 28 mmol/L (21-32) Anion Gap 10 (6-14) Blood Urea Nitrogen 15 mg/dL (8-26) Creatinine 1.1 mg/dL (0.7-1.3) Estimated GFR (Cockcroft-Gault) 71.4 Glucose Level 110 mg/dL (70-99) Calcium Level 9.4 mg/dL (8.5-10.1) Magnesium Level 1.8 mg/dL (1.8-2.4) Total Bilirubin 0.6 mg/dL (0.2-1.0) Direct Bilirubin 0.1 mg/dL (0.0-0.2) Aspartate Amino Transf (AST/SGOT) 18 U/L (15-37) Alanine Aminotransferase (ALT/SGPT) 40 U/L (16-63) Alkaline Phosphatase 120 U/L (46-116) Creatine Kinase 80 U/L (39-308) Creatine Kinase MB (Mass) 0.9 ng/mL (0.0-3.6) Creatine Kinase MB Relative Index 1.1 % (0-4) Troponin I Quantitative < 0.017 ng/mL (0.000-0.055) < 0.017 ng/mL (0.000-0.055) < 0.017 ng/mL (0.000-0.055) VO-Ris-X-Type Natriuretic Peptide 21 pg/mL (0-124) Total Protein 8.1 g/dL (6.4-8.2) Albumin 4.2 g/dL (3.4-5.0) Lipase 144 U/L (73-393) Thyroid Stimulating Hormone (TSH) 1.481 uIU/mL (0.358-3.74) Urine Collection Type Unknown Urine Color Yellow Urine Clarity Clear Urine pH 6.0 Urine Specific [place] 1.025 Urine Protein Negative mg/dL (NEG-TRACE) Urine Glucose (UA) Negative mg/dL (NEG) Urine Ketones (Stick) Negative mg/dL (NEG) Urine Blood Negative (NEG) Urine Nitrite Negative (NEG) Urine Bilirubin Negative (NEG) Urine Urobilinogen Dipstick 1.0 mg/dL (0.2 mg/dL) Urine Leukocyte Esterase Negative (NEG) Urine RBC 0 /HPF (0-2) Urine WBC 0 /HPF (0-4) Urine Bacteria 0 /HPF (0-FEW) Urine Mucus Marked /LPF Triglycerides Level 81 mg/dL (0-150) Cholesterol Level 143 mg/dL (0-200) LDL Cholesterol, Calculated 91 mg/dL (0-100) VLDL Cholesterol, Calculated 16 mg/dL (0-40) Non-HDL Cholesterol Calculated 107 mg/dL (0-129) HDL Cholesterol 36 mg/dL (40-60) Cholesterol/HDL Ratio 4.0 Assessment/Plan Assessment/Plan 1. Chest pain with atypical features: Most probably GI etiology. Myocardial infarction was ruled out. Plan for outpatient exercise stress echocardiogram to rule out ischemia. Continue proton pump inhibitors. 2. Hypertension: Well-controlled Thank you for your consultation. ESME REYNOLDS MD Sep 27, 2017 12:25
== END 2017-09-27 18:30 | disposition home or self-care (01) | DRG 392 ==
LOC: ER 12:55 → 2 SOUTH 15:06
PROVIDERS: ADMIT Internal Medicine; ATTEND Internal Medicine
DX: K21.9 Gastro-esophageal reflux disease without esophagitis (principal); E66.9 Obesity, unspecified; I10 Essential (primary) hypertension; Z68.31 Body mass index [BMI] 31.0-31.9, adult; Z82.49 Family history of ischemic heart disease and other diseases of the circulatory system; Z79.899 Other long term (current) drug therapy
CPT/HCPCS: 36415; 70450; 71010; 80048; 80061; 80076; 81001; 82553; 83690; 83735; 83880; 84443; 84484; 85025; 85379; 90686; 93005; 96374; 96375; J1170; J2060; J2405; J3010; J7030; 99285-25

== ENCOUNTER 2018-07-04 02:55 | Emergency (ER) | payer OTHER ==
[~2018-07-04] VITALS: Ht 188 cm; Wt 115.7 kg
[~2018-07-04 02:55] MED LIST: AMLO5TAB7 PO; OMEP20TA8 PO
[2018-07-04] MEDS ORDERED: ASPIRIN CHEWABLE 81 MG TABLET. PO ONE (03:30)
[2018-07-04 03:55] LABS: BASO # 0.1 x10^3/uL (0.0-0.2); BASO % 1 % (0-3); EOS # 0.1 x10^3/uL (0.0-0.7); EOS % 2 % (0-3); HEMATOCRIT 44.5 % (39.0-53.0); HEMOGLOBIN 15.6 g/dL (13.0-17.5); LYMPH # 2.1 x10^3/uL (1.0-4.8); LYMPH % 30 % (24-48); MEAN CORPUSCULAR HEMOGLOBIN 29 pg (25-35); MEAN CORPUSCULAR HGB CONC 35 g/dL (31-37); MEAN CORPUSCULAR VOLUME 83 fL (79-100); MONO # 0.6 x10^3/uL (0.0-1.1); MONO % 8 % (0-9); NEUT # 4.1 x10^3uL (1.8-7.7); NEUT % 59 % (31-73); PLATELET COUNT 230 x10^3/uL (140-400); RED BLOOD COUNT 5.36 x10^6/uL (4.30-5.70); RED CELL DISTRIBUTION WIDTH 14.5 % (11.5-14.5)
[2018-07-04 04:02] LABS: PROTHROMBIN TIME PATIENT 12.8 SEC (11.7-14.0)
[2018-07-04 04:08] LABS: CALCIUM 9.6 mg/dL (8.5-10.1); CREATININE 1.2 mg/dL (0.7-1.3); GFR 64.4; POTASSIUM 4.1 mmol/L (3.5-5.1)
[2018-07-04 04:13] LABS: ALBUMIN/GLOBULIN RATIO 1.1 (1.0-1.7); TOTAL BILIRUBIN 0.6 mg/dL (0.2-1.0); TOTAL PROTEIN 7.8 g/dL (6.4-8.2)
--- NOTE | 2018-07-04 04:43 | PHYS DOC ---
Past Medical History Past Medical History: GERD, Hypertension Past Surgical History: Other Additional Past Surgical Histo: cardiac cath no intervention Alcohol Use: None Drug Use: None Adult General Chief Complaint Chief Complaint: SHORTNESS OF BREATH HPI HPI Patient is a 48 year old male presenting to the ER with a complaint of shortness of breath when he lies flat this is happening the last few nights. He says he lies flat any feel short of breath he also has had intermittent tingling of his arm and leg. He does not know what is causing the symptoms he is not having any chest pain he has had a history of GERD in the past. He did get admitted for atypical chest pain earlier this year he had a negative workup. He denies any history of blood clots no leg swelling no hemoptysis no recent travel. No family history of coronary artery disease. Review of Systems Review of Systems Constitutional: Denies fever or chills [] Eyes: Denies change in visual acuity, redness, or eye pain [] HENT: Denies nasal congestion or sore throat [] Cardiovascular: No additional information not addressed in HPI [] Musculoskeletal: Denies back pain or joint pain [] Integument: Denies rash or skin lesions [] Neurologic: Denies headache, focal weakness or sensory changes [] Endocrine: Denies polyuria or polydipsia [] All other systems were reviewed and found to be within normal limits, except as documented in this note. Current Medications Current Medications Current Medications Medications (Trade) Dose Ordered Sig/Conner Start Time Stop Time Status Last Admin Dose Admin Aspirin (Children'S Aspirin) 324 mg 1X ONCE 07/04/18 03:30 07/04/18 03:31 DC 07/04/18 03:56 324 MG Allergies Allergies Allergies Coded Allergies Type Severity Reaction Last Updated Verified No Known Drug Allergies 09/26/17 No Physical Exam Physical Exam Constitutional: Well developed, well nourished, no acute distress, non-toxic appearance. [] HENT: Normocephalic, atraumatic, bilateral external ears normal, oropharynx moist, no oral exudates, nose normal. [] Eyes: PERRLA, EOMI, conjunctiva normal, no discharge. [] Neck: Normal range of motion, no tenderness, supple, no stridor. [] Cardiovascular:Heart rate regular rhythm, no murmur [] Lungs & Thorax: Bilateral breath sounds clear to auscultation [] Abdomen: Bowel sounds normal, soft, no tenderness, no masses, no pulsatile masses. [] Skin: Warm, dry, no erythema, no rash. [] Back: No tenderness, no CVA tenderness. [] Extremities: No tenderness, no cyanosis, no clubbing, ROM intact, no edema. [] Neurologic: Alert and oriented X 3, normal motor function, normal sensory function, no focal deficits noted. [] SPECIFICALLY LEFT ARM AND LEG SENSATION AND STRENGTH ARE FULLY INTACT. Psychologic: Affect normal, judgement normal, mood mild anxiety noted Current Patient Data Vital Signs Vital Signs Date Time Temp Pulse Resp B/P (MAP) Pulse Ox O2 Delivery O2 Flow Rate FiO2 07/04/18 03:05 97.8 69 20 160/92 (114) 99 Room Air 97.8 Lab Values Laboratory Tests Test 07/04/18 03:43 White Blood Count 7.0 x10^3/uL (4.0-11.0) Red Blood Count 5.36 x10^6/uL (4.30-5.70) Hemoglobin 15.6 g/dL (13.0-17.5) Hematocrit 44.5 % (39.0-53.0) Mean Corpuscular Volume 83 fL (79-100) Mean Corpuscular Hemoglobin 29 pg (25-35) Mean Corpuscular Hemoglobin Concent 35 g/dL (31-37) Red Cell Distribution Width 14.5 % (11.5-14.5) Platelet Count 230 x10^3/uL (140-400) Neutrophils (%) (Auto) 59 % (31-73) Lymphocytes (%) (Auto) 30 % (24-48) Monocytes (%) (Auto) 8 % (0-9) Eosinophils (%) (Auto) 2 % (0-3) Basophils (%) (Auto) 1 % (0-3) Neutrophils # (Auto) 4.1 x10^3uL (1.8-7.7) Lymphocytes # (Auto) 2.1 x10^3/uL (1.0-4.8) Monocytes # (Auto) 0.6 x10^3/uL (0.0-1.1) Eosinophils # (Auto) 0.1 x10^3/uL (0.0-0.7) Basophils # (Auto) 0.1 x10^3/uL (0.0-0.2) Prothrombin Time 12.8 SEC (11.7-14.0) Prothrombin Time INR 1.0 (0.8-1.1) Sodium Level 144 mmol/L (136-145) Potassium Level 4.1 mmol/L (3.5-5.1) Chloride Level 106 mmol/L (98-107) Carbon Dioxide Level 27 mmol/L (21-32) Anion Gap 11 (6-14) Blood Urea Nitrogen 20 mg/dL (8-26) Creatinine 1.2 mg/dL (0.7-1.3) Estimated GFR (Cockcroft-Gault) 64.4 BUN/Creatinine Ratio 17 (6-20) Glucose Level 117 mg/dL (70-99) H Calcium Level 9.6 mg/dL (8.5-10.1) Total Bilirubin 0.6 mg/dL (0.2-1.0) Aspartate Amino Transferase (AST) 21 U/L (15-37) Alanine Aminotransferase (ALT) 47 U/L (16-63) Alkaline Phosphatase 105 U/L (46-116) Troponin I Quantitative < 0.017 ng/mL (0.000-0.055) WH-Tdx-F-Type Natriuretic Peptide 24 pg/mL (0-124) Total Protein 7.8 g/dL (6.4-8.2) Albumin 4.0 g/dL (3.4-5.0) Albumin/Globulin Ratio 1.1 (1.0-1.7) Laboratory Tests 07/04/18 03:43 Laboratory Tests 07/04/18 03:43 EKG EKG []EKG shows normal sinus rhythm rate of 63 no ischemic changes noted fairly normal-appearing EKG interpreted by me at time of encounter Radiology/Procedures Radiology/Procedures [] Impressions: My interpretation normal no obvious pulmonary edema was identified cardiac silhouette appears normal given the technique bones normal Course & Med Decision Making Course & Med Decision Making Pertinent Labs and Imaging studies reviewed. (See chart for details) [] PERC NEGATIVE HEART SCORE IS A H 0 E 0 A 1 R 1 T 0 =2. 48-year-old male history of GERD presenting with a complaint of shortness of breath with lying flat at night. Perhaps there is a GERD component to his symptoms no evidence of CHF by clinical evaluation or by lab testing. Patient is a normal neuro exam this does not sound like a CVA. EKG and troponin were negative for acute coronary syndrome this is very atypical presentation. I advised follow-up within a few days with primary care doctor for consideration of further testing as indicated such as stress testing or echocardiogram. Patient was very very worried about his symptoms I tried to reassure him the best I could. At this point in time there is no evidence of acute process. Dragon Disclaimer Dragon Disclaimer This electronic medical record was generated, in whole or in part, using a voice recognition dictation system. Departure Departure Impression: Primary Impression: Dyspnea Disposition: HOME, SELF-CARE Condition: IMPROVED Patient Instructions: Shortness of Breath, [id number] ANIBAL CASTRO MD Jul 04, 2018 04:43
[2018-07-04 04:59] VITALS: BP 144/78
--- NOTE | 2018-07-04 07:26 | EKG ---
[facility] [address] [place] [address] Test Date: 2018-07-04 Test Time: 03:08:28 Pat Name: DELIA NUÑEZ Department: Room: Gender: M Reworker: : 1970 Requested By: ANIBAL CASTRO Order Number: [id number] Reading MD: Jose Luis Caceres MD Measurements Intervals [place] Rate: 63 P: 34 MO: 150 QRS: 2 QRSD: 96 T: 12 QT: 376 QTc: 388 Interpretive Statements SINUS RHYTHM Electronically Signed On 07-04-2018 14:07:29 CDT by Jose Luis Caceres MD
--- NOTE | 2018-07-04 07:42 | RAD ---
Portable chest, 07/04/2018: HISTORY: Shortness of breath Comparison is made to a study from 09/26/2017. The heart size and pulmonary vascularity are within normal limits. No pulmonary infiltrate is seen. There is no evidence of pleural fluid. IMPRESSION: No acute cardiopulmonary abnormality is detected. Electronically signed by: Luis Sharma MD (07/04/2018 7:38 AM) [facility]
== END 2018-07-04 05:02 | disposition home or self-care (01) ==
LOC: ER 02:55
DX: R06.00 Dyspnea, unspecified (principal); I10 Essential (primary) hypertension; K21.9 Gastro-esophageal reflux disease without esophagitis
CPT/HCPCS: 36415; 71045; 80053; 83880; 84484; 85025; 85610; 93005; 99285-25

== ENCOUNTER 2019-06-09 19:20 | Emergency (ER) | payer OTHER ==
[~2019-06-09] VITALS: Ht 188 cm; Wt 108.4 kg
[~2019-06-09 19:20] MED LIST changes: +AMLO5TAB10 PO; -AMLO5TAB7 PO
[2019-06-09 19:38] VITALS: BP 195/104
[2019-06-09] MEDS ORDERED: NAPR-514 PO (20:11)
[2019-06-09] MEDS ORDERED: CYCL10TA2 PO (20:11)
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
[2019-06-09] MEDS ORDERED: NEOMY/BACITR/POLYMYXIN OINT PACKET. TP ONE (20:45)
[2019-06-09] MEDS ORDERED: DIPHTH,PERTUSS(ACELL),TET TOX 0.5 ML DISP.SYRIN. VAX IM ONE (20:45)
== END 2019-06-09 20:55 | disposition home or self-care (01) ==
LOC: ER 19:20
DX: S70.312A Abrasion, left thigh, initial encounter (principal); S80.212A Abrasion, left knee, initial encounter; S80.211A Abrasion, right knee, initial encounter; M25.512 Pain in left shoulder; Z23 Encounter for immunization; K21.9 Gastro-esophageal reflux disease without esophagitis; I10 Essential (primary) hypertension; V43.52XA Car driver injured in collision with other type car in traffic accident, initial encounter; Y93.I9 Activity, other involving external motion; Y92.488 Other paved roadways as the place of occurrence of the external cause; Y99.8 Other external cause status
CPT/HCPCS: 90471; 90715; 99283-25